=== PATIENT | male | born 1940 | race Caucasian/White ===

== ENCOUNTER 2022-12-29 10:09 | Outpatient (CLI) | payer MEDICARE, SELFPAY ==
[2022-12-29 10:51] LABS: Partial Thromboplastin Time 32.1 SECONDS (22.3-36.8)
== END 2022-12-29 10:10 | disposition home or self-care (01) ==
LOC: ANHSURGERY 10:16
PROVIDERS: Visit Provider Urology
DX: Z01.812 Encounter for preprocedural laboratory examination (principal); N20.0 Calculus of kidney
CPT/HCPCS: 36415; 85610; 85730

== ENCOUNTER 2023-01-01 00:15 | Day surgery (SDC) | payer MEDICARE, SELFPAY ==
[2022-12-28 11:06] VITALS: BMI 26.2
--- NOTE | 2022-12-28 11:30 | PC.NURSE ---
Report to the Outpatient Waiting Room, entrance under the green pavilion located off [facility], at time _0630_ on date _01/01/23_. Planned Procedure Time: _0830_. Time changes happen often and if your time is changed the preop area will call you the afternoon before. - You and your visitor will be asked to self-screen and do not enter if you have any COVID symptoms. - A mask is optional within the hospital at this time. Patients may have clear liquids (water, carbonated beverages, clear teas, apple juice) until 3 hours prior to surgery (0530 AM) with a maximum of 20 ounces. - No food from midnight until time of surgery Take the following medications with a SIP of water the morning of surgery: _METOPROLOL, TRAMADOL IF NEEDED_ DO NOT STOP ANY OF YOUR OTHER PRESCRIPTION MEDICATIONS PRIOR TO SURGERY ?EXCEPT THE FOLLOWING Medications to discontinue __ELIQUIS PER DR. FANG'S INSTRUCTIONS (12/29/22) PER PATIENT'S SPOUSE__ Medications to discontinue per ANESTHESIA - _MULTIVITAMIN 3 DAYS PRIOR TO SURGERY, Date to take last dose 12/29/22_ Please no make-up, nail kiswahili, hairspray, perfume, deodorant, or body powder the day of surgery. No jewelry (including any body piercings) or valuables the day of surgery, leave them at home. Please take a shower or bath the night before, or the morning of, surgery with an antibacterial soap. Wear comfortable, loose fitting clothing. - Jewelry must be removed prior to entering the operating room. Rings and piercings that are not removed may be cut off. - The hospital will not accept responsibility for valuables. - Please leave all valuables, including medications, at home the day of surgery. If you are going home after surgery, a licensed chair car driver must drive you home. - NO public transportation without another adult if you receive anesthesia. - We recommend that an adult stay with you for 24 hours following discharge. - We also recommend that you do not drive, make important decision, drink alcoholic beverages, or take any drugs that were not prescribed by your health care provider for at least 24 hours after your discharge time. Follow any additional instructions given to you from your surgeon. If you or anyone in your household have experienced Covid symptoms in the past week, please notify your surgeon or the nurse liaison at the phone number below for possible testing. Telephone instructions given to _PATIENT'S SPOUSE__and asked if any additional questions and then verbalized understanding. Patient advised to call surgeon office or pre surgery nurse liaison [phone] if any additional questions.
--- NOTE | 2022-12-29 06:59 | PM.HPGS ---
History of Present Illness History of Present Illness Consent: Risks, benefits, and alternatives have been discussed and questions answered. Patient agrees to proceed with procedure. Chief complaint: right ureteral stone Narrative: Nas Cantrell is a 82 year old male several weeks ago was found to have a 5 mm right mid ureteral calculus after presenting with hematuria and intermittent right flank pain. This imaging is done in a [facility] hospital. He has undergone thorough discussion of therapeutic options including endoscopic approach to his ureteral stone in her right ESWL. He has elected for the latter. He is aware the risk including, but not limited to, adverse cardiopulmonary events, hematuria and need for additional procedures. Review of Systems Review of Systems: All systems reviewed & are unremarkable except as noted in HPI and below PMFSH Social History Social History Smoking status: Never smoker Second hand tobacco smoke exposure: No Alcohol intake: never Substance use: never Substance use type: does not use Living arrangements: with family Spiritual care concerns: No Meds Home Medications and Allergies Home Medications Medication Instructions Recorded Confirmed Type apixaban 5 mg tablet (Eliquis) 5 mg BID 12/28/22 12/28/22 History esomeprazole magnesium 20 mg 20 mg PO DAILY 12/28/22 12/28/22 History capsule,delayed release (Nexium) finasteride 5 mg tablet 5 mg DAILY 12/28/22 12/28/22 History [id number]-xyatxux See Rx Instructions .Route .COMPLEX 12/28/22 12/28/22 History 20,880-78,300-78,300 unit tablet (Viokace) metoprolol tartrate 50 mg tablet 50 mg BID 12/28/22 12/28/22 History multivitamin 1 tablet PO DAILY 12/28/22 12/28/22 History tamsulosin 0.4 mg capsule 0.4 mg PO BID 12/28/22 12/28/22 History tramadol 50 mg tablet 50 mg PO Q6H PRN Pain 12/28/22 12/28/22 History Allergies Allergy/AdvReac Type Severity Reaction Status Date / Time No Known Allergies Allergy Verified 12/28/22 10:57 Exam Const: General: no acute distress Resp: Effort & Inspection: normal respiratory effort GI: Inspection: non-distended GI Palp: No abdominal tenderness and No Guarding due to palpation present (GI) Auscultation: normal bowel sounds Assessment and Plan Assessment and plan (1) Right ureteral stone: Code(s): N20.1 - Calculus of ureter Status: Acute Assessment and Plan: Right ESWL
--- NOTE | 2022-12-31 14:19 | P.PNAN_ITS ---
Anes - Initial Pre Proc Eval Procedure: Operation Date: 01/01/23 08:30 Proposed Procedures p Right Ureteral Extracorporeal Shock Wave Lithotripsy - Dave Cooper MD Date/Time: 12/31/22 14:19 Surgeon: Dave Cooper MD Pre Op Diagnosis: right ureteral stone Patient Data Age: 82 Gender: M Height: 1.71 m Weight: 77.27 kg Allergies Allergy/AdvReac Type Severity Reaction Status Date / Time No Known Allergies Allergy Verified 12/28/22 10:57 Home Medications Medication Instructions Recorded Confirmed Type apixaban 5 mg tablet (Eliquis) 5 mg BID 12/28/22 12/28/22 History esomeprazole magnesium 20 mg 20 mg PO DAILY 12/28/22 12/28/22 History capsule,delayed release (Nexium) finasteride 5 mg tablet 5 mg DAILY 12/28/22 12/28/22 History [id number]-ylislmum-pyoobip See Rx Instructions .Route .COMPLEX 12/28/22 12/28/22 History 20,880-78,300-78,300 unit tablet (Viokace) metoprolol tartrate 50 mg tablet 50 mg BID 12/28/22 12/28/22 History multivitamin 1 tablet PO DAILY 12/28/22 12/28/22 History tamsulosin 0.4 mg capsule 0.4 mg PO BID 12/28/22 12/28/22 History tramadol 50 mg tablet 50 mg PO Q6H PRN Pain 12/28/22 12/28/22 History Results Review: All pre-operative results and documents have been reviewed as part of the pre- operative evaluation. [facility] Social History Social History Smoking status: Never smoker Second hand tobacco smoke exposure: No Alcohol intake: never Substance use: never Substance use type: does not use Living arrangements: with family Spiritual care concerns: No Anes - Eval Final PreProcedure Day of Procedure 12/31/22 14:19 Results Review: All pre-operative results and documents have been reviewed as part of the pre- operative evaluation. Informed Consent: The patient's anesthetic plan and its attendant risks and benefits were discussed with the patient/family/POA. Questions were solicited and answers provided to the satisfaction of the patient/family/POA.
[2023-01-01] VITALS (7 sets, daily range): BP systolic 154–184; BP diastolic 66–83; PULSE 52–61; RESP 10–18; TEMP 36.5–37.1; O2SAT 96–100; BMI 26.8
--- NOTE | ~2023-01-01 | CT_ITS ---
Non-contrast CT scan of the Abdomen and Pelvis Clinical indication: Right ureteral stone Technique: 2.5 mm axial scans were obtained through the abdomen and pelvis without intravenous or or al contrast. Dose reduction technique was used on this scan by utilizing automated exposure control a nd iterative reconstruction technique. The dose-length product (DLP) was 481.95 mGy-cm. Findings: Images through the lung bases reveal no abnormalities. There is a 6 mm distal right ureteral stone (axial image 129). No hydronephrosis on either side. Mult iple additional bilateral nonobstructing renal stones are present. Bilateral renal cysts are present. There are cholecystectomy clips and extensive pneumobilia. Small inferior right hepatic lobe cyst pre sent. The spleen, pancreas, and adrenals appear normal. 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 There is no evidence of bowel obstruction. There is evidence of prior partial right colectomy. Images through the pelvis were performed. There is no evidence of ascites or lymphadenopathy. Urinary bladder is markedly distended. Prostate gland is mildly enlarged. Impression: 6 mm distal right ureteral stone. No hydronephrosis. Multiple additional bilateral nonobstructing renal stones. 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 Reviewed, dictated and finalized at [facility]. Impression: 6 mm distal right ureteral stone. No hydronephrosis. Multiple additional bilateral nonobstructing renal stones. 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
--- NOTE | ~2023-01-01 | XR_ITS ---
Supine views of the abdomen Clinical history: Renal stone COMPARISON: CT performed earlier 01/01/2023 Findings: Bowel gas pattern is nonspecific. No evidence for obstruction or free air. 5 mm right pelvi c calcification is consistent with distal right ureteral stone, as seen on CT performed earlier today . Additional bilateral nonobstructing renal stones are present, largest measuring up to 6 mm the left upper pole. Aortic stent graft in place. Cholecystectomy clips present. Osseous structures are intac t. Impression: 5 mm distal right ureteral stone, as seen on earlier CT. Additional bilateral nephrolithiasis, as detailed above. Aortic stent graft in place. Reviewed, dictated and finalized at location [facility]. Impression: 5 mm distal right ureteral stone, as seen on earlier CT. Additional bilateral nephrolithiasis, as detailed above. Aortic stent graft in place.
--- NOTE | 2023-01-01 06:37 | WPDHPUPDATE1 ---
History and Physical Update Update Date/Time: 01/01/23 06:37 History and Physical has been reviewed, including an updated exam of the patient. There are NO changes in the patient's condition. Risks, benefits, and alternatives have been discussed and questions answered. Patient agrees to proceed with procedure.
[2023-01-01] MEDS: LACTATED RINGERS 1,000 ML 30 ML IV CONT (07:40)
--- NOTE | 2023-01-01 07:45 | P.PNAN_ITS ---
Anes - Initial Pre Proc Eval Procedure: Operation Date: 01/01/23 08:30 Proposed Procedures p Right Ureteral Extracorporeal Shock Wave Lithotripsy - Dave Cooper MD Date/Time: 01/01/23 07:45 Surgeon: Dave Cooper MD Pre Op Diagnosis: right ureteral stone Patient Data Age: 82 Gender: M Height: 1.71 m Weight: 77.27 kg Allergies Allergy/AdvReac Type Severity Reaction Status Date / Time No Known Allergies Allergy Verified 12/28/22 10:57 Home Medications Medication Instructions Recorded Confirmed Type apixaban 5 mg tablet (Eliquis) 5 mg BID 12/28/22 12/28/22 History esomeprazole magnesium 20 mg 20 mg PO DAILY 12/28/22 12/28/22 History capsule,delayed release (Nexium) finasteride 5 mg tablet 5 mg DAILY 12/28/22 12/28/22 History [id number]-lovglppd-cmgjofx See Rx Instructions .Route .COMPLEX 12/28/22 12/28/22 History 20,880-78,300-78,300 unit tablet (Viokace) metoprolol tartrate 50 mg tablet 50 mg BID 12/28/22 12/28/22 History multivitamin 1 tablet PO DAILY 12/28/22 12/28/22 History tamsulosin 0.4 mg capsule 0.4 mg PO BID 12/28/22 12/28/22 History tramadol 50 mg tablet 50 mg PO Q6H PRN Pain 12/28/22 12/28/22 History Patient hx anesthesia problems: none Family hx anesthesia problems: none Results Review: All pre-operative results and documents have been reviewed as part of the pre- operative evaluation. [facility] Social History Social History Smoking status: Never smoker Second hand tobacco smoke exposure: No Alcohol intake: never Substance use: never Substance use type: does not use Living arrangements: with family Spiritual care concerns: No Anes - Eval Final PreProcedure Day of Procedure 01/01/23 07:45 Patient weight: normal Heart: regular rate and rhythm Lungs: clear to auscultation Airway: Mallampati scale class II Neurological: alert and oriented Last oral intake: >/= 8 hours ASA classification: III Emergent: no Anesthetic plan: proceed Anesthesia type and monitoring: general LMA and standard monitoring Results Review: All pre-operative results and documents have been reviewed as part of the pre- operative evaluation. Informed Consent: The patient's anesthetic plan and its attendant risks and benefits were discussed with the patient/family/POA. Questions were solicited and answers provided to the satisfaction of the patient/family/POA.
[2023-01-01] MEDS: ceFAZolin 2 GM/D5W 50 ML 2 GM/50 ML BAG IVPB (08:21)
--- NOTE | 2023-01-01 08:51 | W.PM.PROC2 ---
Procedure Note - Detailed Date of Procedure 01/01/23 Pre-op Diagnosis Right ureteral stone Post-op Diagnosis Same Procedure Performed Right ESWL Surgeon Dave Cooper MD Anesthesia General Description of Procedure The patient was brought to the operative suite where he was placed in the supine position on the [place] lithotripsy table. The focal point of the lithotripter was placed at a 5-mm right distal ureteral calculus. A total of 3000 shocks were delivered at a power setting of 4. There appeared to be good fragmentation of the stone. The patient tolerated the procedure well and was taken to the recovery room in good condition. Drains No Packing No Pathology None sent Complications No immediate complications Condition Stable Disposition PACU
== END 2023-01-01 10:47 | disposition home or self-care (01) ==
PROVIDERS: Visit Provider Urology
PROC: (CPT 50590; principal; 2023-01-01 08:30)
DX: N20.1 Calculus of ureter (principal); Z79.01 Long term (current) use of anticoagulants
CPT/HCPCS: 50590; 36415; 74018; 74176; 85610; 85730; J0690; J1100; J2405; J2704; J3010; J7120